=== PATIENT | male | born 1965 | race Caucasian/White ===

== ENCOUNTER 2016-09-11 19:14 | Observation (INO) | payer OTHER ==
[2016-09-11] MEDS ORDERED: ONDANSETRON 4 MG/2 ML VIAL IVPB ONE (19:52)
[2016-09-11] MEDS ORDERED: SODIUM CHLORIDE 500 ML IV STA (19:52)
[2016-09-11] MEDS ORDERED: ONDANSETRON 4 MG/2 ML VIAL ONE (20:01)
[2016-09-11 20:12] LABS: BASOPHIL 0.8 % (0-2.0); EOSINOPHIL 4.5 % (0-4.5); MCH 34.8 pg (25.7-33.7); MCHC 32.6 g/dl (32.0-35.9); MEAN PLT VOLUME 9.7 fl (7.5-11.1); NEUTROPHILS 54.2 % (42.8-82.8); PLATELET COUNT 188 K/MM3 (134-434); RDW 13.2 % (11.9-15.9); WHITE BLOOD COUNT 8.6 K/mm3 (4.0-10.0)
[2016-09-11 20:39] LABS: ANION GAP 10 (8-16); BILIRUBIN,TOTAL 0.3 mg/dL (0.2-1.0); CALCIUM 9.2 mg/dL (8.5-10.1); CO2 28 mmol/L (21-32); COCKROFT - GAULT 85.29; CREATININE 1.3 mg/dL (0.7-1.3); GLUCOSE,RANDOM 94 mg/dL (74-106); SGOT/AST 31 U/L (15-37); SGPT/ALT 38 U/L (12-78); TOT PROT 7.1 g/dl (6.4-8.2)
[2016-09-11 20:41] LABS: ALK PHOS 52 U/L (45-117); TROPONIN I < 0.02 ng/ml (0.00-0.05)
--- NOTE | 2016-09-11 21:08 | PDOC ---
History of Present Illness - General Chief Complaint: Pain Stated Complaint: CHEST PAIN Time Seen by Provider: 09/11/16 19:36 History Source: Patient Exam Limitations: No Limitations - History of Present Illness Initial Comments: 09/11/16 20:55 51yo Male patient w/ PmHx: HTN, HIV+, Herniated Disc presents to ED with multiple complaints. Patient reports last night around 3am, began having sharp back pain below left shoulder blade. He reports he was unable to sleep. Patient states having feelings of dizziness, nausea, numbness to left parietal region of scalp, left small finger radiating to palm, and left plantar "pins and needles." He reports last viral load around 15k. Patient was seen by his PCP- Dr. Huizar and sent over due to EKG change in comparison to EKG last year. Spoke with Dr. Catalan (Infectious Disease) who would like CTA, Lactic Acid and CPK added to labs and testing. He states patient was starting on new HIV medication 1 month ago, but does not believe this has anything to do with his medications. Infectious disease- Dr. Catalan. Internal Medicine- Dr. Huizar. Past History - Travel Traveled outside of the country in the last 30 days: No Close contact w/someone who was outside of country & ill: No - Past Medical History Allergies/Adverse Reactions: Allergies Allergy/AdvReac Type Severity Reaction Status Date / Time Penicillins Allergy Verified 09/11/16 19:24 Home Medications: Ambulatory Orders Unobtainable [Unobtainable] 09/11/16 Asthma: Yes HTN: Yes (borderline) HIV: Yes (viral load undetectable, CD4 count unknown.) - Surgical History Orthopedic Surgery: Yes (right knee) - Psycho/Social/Smoking Cessation Hx Suicidal Ideation: No Smoking Status: No Smoking History: Never smoked Number of Cigarettes Smoked Daily: 0 Hx Alcohol Use: No Drug/Substance Use Hx: No Substance Use Type: None Review of Systems - Review of Systems Able to Perform ROS?: Yes Is the patient limited Uzbek proficient: No Constitutional: No: Chills, Fever, Malaise, Night Sweats, Weakness HEENTM: No: Blurred Vision, Recent change in vision, Double Vision Respiratory: No: Cough, Shortness of Breath, Stridor, Wheezing, Hemoptysis Cardiac (ROS): Yes: Chest Pain. No: Lightheadedness, Palpitations, Syncope, Chest Tightness ABD/GI: Yes: Nausea. No: Constipated, Diarrhea, Poor Appetite, Poor Fluid Intake, Vomiting : No: Dysuria, Flank Pain Musculoskeletal: Yes: Back Pain. No: Joint Pain, Joint Swelling, Muscle Pain, Muscle Weakness, Joint Stiffness Integumentary: Yes: Sweating. No: Bruising, Erythema, Rash Neurological: Yes: Numbness, Paresthesia, Tingling, Dizziness. No: Headache, Seizure, Tremors, Weakness Hematologic/Lymphatic: No: Swollen Glands All Other Systems: Reviewed and Negative *Physical Exam - Vital Signs Last Vital Signs Temp Pulse Resp BP Pulse Ox 98.2 F 91 H 18 136/96 98 09/11/16 19:25 09/11/16 19:25 09/11/16 19:25 09/11/16 19:25 09/11/16 19:25 - Physical Exam General Appearance: Yes: Nourished, Appropriately Dressed. No: Apparent Distress, Mild Distress, Moderate Distress, Severe Distress HEENT: positive: EOMI, MEL, Normal ENT Inspection, Normal Voice, Symmetrical, TMs Normal, Pharynx Normal. negative: Pharyngeal Erythema, Tonsillar Exudate, Tonsillar Erythema, Nasal Congestion, Rhinorrhea, TM Bulging, TM Dull, TM Erythema Neck: positive: Trachea midline, Normal Thyroid, Supple. negative: Rigid, Lymphadenopathy (R), Lymphadenopathy (L), Tender lateral, Tender midline Respiratory/Chest: positive: Lungs Clear, Normal Breath Sounds. negative: Chest Tender, Respiratory Distress, Accessory Muscle Use, Labored Respiration, Rapid RR, Crackles, Rales, Rhonchi, Stridor, Wheezing Cardiovascular: positive: Regular Rhythm, Regular Rate Gastrointestinal/Abdominal: positive: Normal Bowel Sounds, Soft. negative: Distended, Guarding, Rebound, Tenderness Musculoskeletal: positive: Normal Inspection. negative: CVA Tenderness, Decreased Range of Motion, Muscle Spasm, Vertebral Tenderness Extremity: positive: Normal Capillary Refill, Normal Inspection, Normal Range of Motion. negative: Pedal Edema, Swelling, Calf Tenderness, Erythema, Inflammation Integumentary: positive: Normal Color, Dry, Warm. negative: Erythema, Hives, Rash, Swelling, Bruising Neurologic: positive: ventilating expert II-XII NML intact, Fully Oriented, Alert, Normal Mood/ Affect, Normal Response, Motor Strength 5/5 Heart Score/ECG Review - History History: Slightly suspicious - Electrocardiogram EKG: Normal - Age Age: 45-65 - Risk Factors Risk Factors Heart Score: No Hx Hypercholesterolemia, Yes Hx Hypertension, No Hx Diabetes, No Smoking History, No Positive family hx of cardiac disease, No Hx Obesity Based on the list above the patient has:: 1-2 risk factors - Troponin Troponin: </= normal limit - Score Heart Score - Total: 2 - ECG Impressions Normal ECG: Yes Non-specific ST Elevation: No Ischemic Changes: No Torsades geovanni Pointes: No WPW: No Comment:: 09/11/16 23:00 NSR W/ FLAT T-WAVES ED Treatment Course - LABORATORY CBC & Chemistry Diagram: 09/11/16 20:00 09/11/16 19:59 - ADDITIONAL ORDERS Additional order review: Laboratory Results 09/11/16 09/11/16 19:59 19:59 Sodium 144 Potassium 4.2 Chloride 106 Carbon Dioxide 28 Anion Gap 10 BUN 22 H Creatinine 1.3 D Creat Clearance w eGFR 57.97 Random Glucose 94 Calcium 9.2 Total Bilirubin 0.3 D AST 31 D ALT 38 Alkaline Phosphatase 52 D Creatine Kinase 368 H D CK-MB (CK-2) Rel Index Cancelled Troponin I < 0.02 Total Protein 7.1 Albumin 4.0 09/11/16 20:00 RBC 3.75 L MCV 107.0 H MCHC 32.6 RDW 13.2 MPV 9.7 Neutrophils % 54.2 Lymphocytes % 30.7 Monocytes % 9.8 Eosinophils % 4.5 Basophils % 0.8 - RADIOLOGY Radiology Studies Ordered: Category Date Time Status CARDIAC CTA [CT] Stat CT Scan 09/11/16 20:[address] WITHOUT CONTRAST [CT] Stat CT Scan 09/11/16 20:08 Ordered CHEST X-RAY PORTABLE* [RAD] Stat Radiology 09/11/16 20:08 Taken - Medications Given in the ED: ED Medications Discontinued Medications Generic Name Dose Route Start Last Admin Trade Name Freq PRN Reason Stop Dose Admin Sodium Chloride 500 mls @ 500 mls/hr 09/11/16 19:52 09/11/16 20:06 Normal Saline - IV 09/11/16 20:51 500 mls/hr ASDIR STA Administration Ondansetron HCl 4 mg 09/11/16 19:52 09/11/16 20:06 Zofran Injection IVPB 09/11/16 19:53 4 mg ONCE ONE Administration *DC/Admit/Observation/Transfer Diagnosis at time of Disposition: Chest pain Qualifiers: Chest pain type: other chest pain Qualified Code(s): R07.89 - Other chest pain ; R07.8 - Other chest pain - Discharge Dispostion Condition at time of disposition: Fair Admit: Yes
[2016-09-11 22:40] LABS: PLATELET ESTIMATE ADEQUATE (NORMAL)
[2016-09-11] MEDS ORDERED: morphine CARPU-JECT 4 MG/1 ML DISP.SYRIN IVPUSH ONE (23:02)
[2016-09-11] MEDS ORDERED: ONDANSETRON 4 MG/2 ML VIAL IVPUSH ONE (23:02)
[2016-09-11] MEDS ORDERED: morphine CARPU-JECT 4 MG/1 ML DISP.SYRIN ONE (23:03)
[2016-09-11] MEDS ORDERED: ONDANSETRON 4 MG/2 ML VIAL IVPB PRN (23:14)
[2016-09-11] MEDS ORDERED: SODIUM CHLORIDE 0.45% 1,000 ML IV SCH (23:15)
[2016-09-12 02:18] VITALS: BMI 27.3
[2016-09-12 05:29] LABS: TROPONIN I < 0.02 ng/ml (0.00-0.05)
[2016-09-12 07:16] LABS: BASOPHIL 0.8 % (0-2.0); EOSINOPHIL 5.7 % (0-4.5); MCH 36.2 pg (25.7-33.7); MCHC 34.2 g/dl (32.0-35.9); MEAN CELL VOLUME 105.9 fl (80-96); MEAN PLT VOLUME 9.5 fl (7.5-11.1); NEUTROPHILS 54.3 % (42.8-82.8); PLATELET COUNT 166 K/MM3 (134-434); RDW 12.7 % (11.9-15.9); WHITE BLOOD COUNT 6.7 K/mm3 (4.0-10.0)
[2016-09-12 09:25] LABS: TROPONIN I < 0.02 ng/ml (0.00-0.05)
[2016-09-12 09:50] LABS: ALBUMIN 3.5 g/dl (3.4-5.0); ANION GAP 9 (8-16); CALCIUM 8.5 mg/dL (8.5-10.1); CO2 25 mmol/L (21-32); GLUCOSE,RANDOM 102 mg/dL (74-106); SGOT/AST 26 U/L (15-37); SGPT/ALT 34 U/L (12-78); TOT PROT 6.2 g/dl (6.4-8.2)
[2016-09-12 09:59] LABS: ALK PHOS 43 U/L (45-117); BILIRUBIN,TOTAL 0.4 mg/dL (0.2-1.0); COCKROFT - GAULT 98.58; CREATININE 1.2 mg/dL (0.7-1.3); THYROID STIMULATING HORMONE 1.73 uIU/ml (0.358-3.74)
[2016-09-12 10:06] LABS: URINE APPEARANCE CLEAR; URINE BILIRUBIN NEGATIVE (NEGATIVE); URINE BLOOD NEGATIVE (NEGATIVE); URINE COLOR LTYELLOW; URINE GLUCOSE (UA) NEGATIVE (NEGATIVE); URINE KETONE NEGATIVE (NEGATIVE); URINE LEUK ESTERASE NEGATIVE (NEGATIVE); URINE NITRITE NEGATIVE (NEGATIVE); URINE PROTEIN NEGATIVE (NEGATIVE); URINE UROBILINOGEN NEGATIVE E.U./dl (0.2-1.0)
--- NOTE | 2016-09-12 10:16 | HP ---
Admitting History and Physical - Primary Care Physician PCP: Keegan Huizar - Admission Chief Complaint: back pain , chest pain History of Present Illness: ER HISTORY History of Present Illness Initial Comments: 09/11/16 20:55 51yo Male patient w/ PmHx: HTN, HIV+, Herniated Disc presents to ED with multiple complaints. Patient reports last night around 3am, began having sharp back pain below left shoulder blade. He reports he was unable to sleep. Patient states having feelings of dizziness, nausea, numbness to left parietal region of scalp, left small finger radiating to palm, and left plantar "pins and needles." He reports last viral load around 15k. Patient was seen by his PCP- Dr. Huizar and sent over due to EKG change in comparison to EKG last year. Spoke with Dr. Catalan (Infectious Disease) who would like CTA, Lactic Acid and CPK added to labs and testing. He states patient was starting on new HIV medication 1 month ago, but does not believe this has anything to do with his medications. Pt seen by me in Tele H/O herniated discs, sees spinal specialists-- has difficulty lifting his left arm, feels a sharp pain in the back when he does so. pain radiates to front of chest. No SOb. No dizziness. has numbness of left fingers and left toes, but sensations are intact.No headaches History Source: Patient Limitations to Obtaining History: No Limitations - Past Medical History Cardiovascular: Yes: HTN Infectious Disease: Yes: HIV Musculoskeletal: Yes: Chronic low back pain Additional Past Medical History: h/o DVT in the past - Smoking History Smoking history: Never smoked Aproximately how many cigarettes per day: 0 - Alcohol/Substance Use Hx Alcohol Use: No Home Medications - Allergies Allergies/Adverse Reactions: Allergies Allergy/AdvReac Type Severity Reaction Status Date / Time Penicillins Allergy Verified 09/11/16 19:24 - Home Medications Home Medications: Ambulatory Orders Baclofen 20 mg PO DAILY #30 tablet 09/12/16 Review of Systems - Review of Systems Constitutional: denies: Chills, Fever, Weakness Cardiovascular: denies: Chest Pain, Palpitations, Shortness of Breath Physical Examination Vital Signs: Vital Signs Temperature 98.1 F 09/11/16 23:52 Pulse Rate 75 09/11/16 23:52 Respiratory Rate 18 09/12/16 01:48 Blood Pressure 132/75 09/11/16 23:52 O2 Sat by Pulse Oximetry (%) 98 09/12/16 01:48 Constitutional: Yes: No Distress, Calm Cardiovascular: Yes: Regular Rate and Rhythm Respiratory: Yes: CTA Bilaterally Gastrointestinal: Yes: Normal Bowel Sounds, Soft, Abdomen, Obese. No: Distention, Tenderness Musculoskeletal: Yes: Other (tender left paraspinal muscle) Edema: No Neurological: Yes: WNL Psychiatric: Yes: Alert, Oriented Labs: CBC, BMP 09/12/16 06:00 09/12/16 06:00 Imaging - Results Chest X-ray: Image Reviewed (clear) Cat Scan: Report Reviewed EKG: Image Reviewed (NR, FLAT T WAVES) Problem List - Problems (1) Chest pain Code(s): R07.9 - CHEST PAIN, UNSPECIFIED Qualifiers: Chest pain type: other chest pain Qualified Code(s): R07.89 - Other chest pain; R07.8 - Other chest pain (2) Back pain Code(s): M54.9 - DORSALGIA, UNSPECIFIED Assessment/Plan PLAN Cardiac enzymes negative tele uneventful over night CTA-- negative for dissection, PE CT head- no acute pathology CT chest shows right nodule and this was discussed with pt-- he needs to repeat CT chest in 3 months to follow up-- he is not a smoker but admits to second hand smoke ID eval regarding meds IV fluids DVT prophylaxis-- heparin sc dc planning sangeeta need to follow up with fiber technician and Neurologist as an outpt
--- NOTE | 2016-09-12 10:38 | DS ---
Physical Examination Vital Signs: Vital Signs Temperature 98.1 F 09/11/16 23:52 Pulse Rate 75 09/11/16 23:52 Respiratory Rate 18 09/12/16 01:48 Blood Pressure 132/75 09/11/16 23:52 O2 Sat by Pulse Oximetry (%) 98 09/12/16 01:48 Constitutional: Yes: No Distress Labs: CBC, BMP 09/12/16 06:00 09/12/16 06:00 Discharge Summary Reason For Visit: chest pain Current Active Problems Chest pain (Acute) Hospital Course: Admitted for chest and back pain ACS ruled out CArotid doppler negative Seen by ID refer to H and P stable for dc home Condition: Improved - Instructions Referrals: Daniel Alfred DO [Staff Physician] - 1 Week (Neurology- for EMG ) Wilder Williamson MD [Staff Physician] - 1 Week (Cardiology) Anselmo Anne MD, MD [Staff Physician] - 3 Weeks (for ct chest -- follow up on lung nodule ) Disposition: HOME - Home Medications Comprehensive Discharge Medication List: Ambulatory Orders Unobtainable [Unobtainable] 09/11/16
[2016-09-12] MEDS ORDERED: NAPROXEN 375 MG TABLET (FP) PO PRN (12:40)
[2016-09-12] MEDS ORDERED: BACLOFEN 10 MG TABLET (FP) PO ONE (13:00)
--- NOTE | 2016-09-12 13:00 | PN ---
Progress Note (short form) - Note Progress Note: ID Consult dictated OK to discharge from ID standpoint Resume ART
[2016-09-12 13:43] VITALS: BP 134/79; PULSE 84; TEMP 98.4
--- NOTE | 2016-09-13 16:35 | EKG ---
Test Reason : Blood Pressure : / mmHG Vent. Rate : 097 BPM Atrial Rate : 097 BPM P-R Int : 162 ms QRS Dur : 096 ms QT Int : 356 ms P-R-T Axes : 046 012 039 degrees QTc Int : 452 ms NORMAL SINUS RHYTHM POSSIBLE LEFT ATRIAL ENLARGEMENT INCOMPLETE RIGHT BUNDLE BRANCH BLOCK NONSPECIFIC T WAVE ABNORMALITY ABNORMAL ECG WHEN COMPARED WITH ECG OF 18-JUL-2012 19:12, NONSPECIFIC T WAVE ABNORMALITY, WORSE IN ANTEROLATERAL LEADS Confirmed by LAMBERT CALHOUN MD ([id number]) on 09/13/2016 4:35:10 PM Referred By: Confirmed By:LAMBERT CALHOUN MD
== END 2016-09-12 15:07 | disposition home or self-care (01) ==
LOC: JER 19:14 → JERBED 23:03 → J4S 09-12 01:38
PROVIDERS: ADMIT Internal Medicine; ATTEND Internal Medicine
PROC: 3E033NZ Introduction of Analgesics, Hypnotics, Sedatives into Peripheral Vein, Percutaneous Approach (ICD-10-PCS; principal; 2016-09-11)
PROC: 3E033GC Introduction of Other Therapeutic Substance into Peripheral Vein, Percutaneous Approach (ICD-10-PCS; 2016-09-11)
PROC: 3E0337Z Introduction of Electrolytic and Water Balance Substance into Peripheral Vein, Percutaneous Approach (ICD-10-PCS; 2016-09-11)
DX: R07.89 Other chest pain (principal); I10 Essential (primary) hypertension; Z21 Asymptomatic human immunodeficiency virus [HIV] infection status; J45.909 Unspecified asthma, uncomplicated; M54.5 Low back pain; G89.29 Other chronic pain
CPT/HCPCS: 36415; 70450-TC; 71010-TC; 71275-TC; 80053; 81003; 82550; 82553; 82607; 83605; 84443; 84484; 85025; 93005; 93010; 93880-TC; 99285-25; G0378; J0475

== ENCOUNTER 2016-11-06 22:02 | Emergency (ER) | payer SELFPAY ==
[2016-11-06 22:19] VITALS: BP 121/58; PULSE 89; TEMP 97.9; BMI 27.2
[2016-11-06] MEDS ORDERED: SODIUM CHLORIDE 1,000 ML IV STA (22:58)
[2016-11-06] MEDS ORDERED: MAG HYDROX/AL HYDROX/SIMETH 30 ML UNIT-DOSE CUP PO PRN (23:01)
[2016-11-06] MEDS ORDERED: FAMOTIDINE 20 MG/50 ML IVPB 50 ML IVPB ONE ×2 (23:01→23:08)
[2016-11-06] MEDS ORDERED: MAG HYDROX/AL HYDROX/SIMETH 30 ML UNIT-DOSE CUP ONE (23:08)
[2016-11-06 23:50] LABS: BASOPHIL 0.9 % (0-2.0); EOSINOPHIL 4.3 % (0-4.5); MCH 32.9 pg (25.7-33.7); MCHC 33.2 g/dl (32.0-35.9); MEAN CELL VOLUME 99.3 fl (80-96); MEAN PLT VOLUME 10.1 fl (7.5-11.1); NEUTROPHILS 52.7 % (42.8-82.8); PLATELET COUNT 212 K/MM3 (134-434); RDW 12.8 % (11.9-15.9); WHITE BLOOD COUNT 8.4 K/mm3 (4.0-10.0)
--- NOTE | 2016-11-07 00:23 | PDOC ---
History of Present Illness - General Chief Complaint: Pain Stated Complaint: CHEST PAIN Time Seen by Provider: 11/06/16 22:43 - History of Present Illness Initial Comments: 11/07/16 00:11 51 yo M with h/o HTN, HIV, and herniated disc who presents with chest pain. Pt. reports diffuse chest pressure of 3 hours duration. States that he has deep left shoulder pain, reflux, and lightheadedness. Denies SOB, diaphoresis, weakness, N/V, fevers/chills, numbness/tingling, LYON, vision changes, dizziness, weakness. States that he started new job and has not maintained adequate fluid intake. Denies nitrate, aspirin use or OTC analgesia. Denies recent traveling, or extended periods of immobility. Recently evaluated in ED (09/11) with similar complaints. Received CT head, CTA, CXR, carotid Doppler. Does not recall last CD4 count or T cell. Past History - Past Medical History Allergies/Adverse Reactions: Allergies Allergy/AdvReac Type Severity Reaction Status Date / Time Penicillins Allergy Verified 11/06/16 22:16 Home Medications: Ambulatory Orders Baclofen 20 mg PO DAILY #30 tablet 09/12/16 Asthma: Yes CVA: No CHF: No Diabetes: No HTN: Yes Hypercholesterolemia: Yes HIV: Yes (viral load undetectable, CD4 count unknown.) Seizures: No - Surgical History Abdominal Surgery: No Orthopedic Surgery: Yes (right knee) - Psycho/Social/Smoking Cessation Hx Suicidal Ideation: No Smoking Status: No Smoking History: Never smoked Number of Cigarettes Smoked Daily: 0 Information on smoking cessation initiated: No Hx Alcohol Use: No Drug/Substance Use Hx: No Substance Use Type: None Review of Systems - Review of Systems Comments:: 11/07/16 00:32 GENERAL/CONSTITUTIONAL: No fever or chills. No weakness. HEAD, EYES, EARS, NOSE AND THROAT: No change in vision. No ear pain or discharge. No sore throat. CARDIOVASCULAR: + chest pain. No shortness of breath RESPIRATORY: No cough, wheezing, or hemoptysis. GASTROINTESTINAL: No nausea, vomiting, diarrhea or constipation. GENITOURINARY: No dysuria, frequency, or change in urination. MUSCULOSKELETAL: No joint or muscle swelling or pain. No neck or back pain. SKIN: No rash NEUROLOGIC:+ lightheadedness. No headache, vertigo, loss of consciousness, or change in strength/sensation. ENDOCRINE: No increased thirst. No abnormal weight change HEMATOLOGIC/LYMPHATIC: No anemia, easy bleeding, or history of blood clots. ALLERGIC/IMMUNOLOGIC: No hives or skin allergy. *Physical Exam - Vital Signs Last Vital Signs Temp Pulse Resp BP Pulse Ox 97.9 F 89 18 121/58 98 11/06/16 22:16 11/06/16 22:16 11/06/16 22:16 11/06/16 23:28 11/06/16 22:16 - Physical Exam Comments: 11/07/16 00:34 GENERAL: Awake, alert, and fully oriented, in no acute distress HEAD: No signs of trauma, normocephalic, atraumatic EYES: PERRLA, EOMI, sclera anicteric, conjunctiva clear ENT:Auricles normal inspection, hearing grossly normal, nares patent, oropharynx clear without exudates. Moist mucosa NECK: Normal ROM, supple, no lymphadenopathy, JVD, or masses LUNGS: No distress, speaks full sentences, clear to auscultation bilaterally HEART: Regular rate and rhythm, normal S1 and S2, no murmurs, rubs or gallops, peripheral pulses normal and equal bilaterally. ABDOMEN: Soft, nontender, normoactive bowel sounds. No guarding, no rebound. No masses EXTREMITIES: Normal inspection, Normal range of motion, no edema. No clubbing or cyanosis. NEUROLOGICAL: Cranial nerves II through XII grossly intact. Normal speech, normal gait, no focal sensorimotor deficits SKIN: Warm, Dry, normal turgor, no rashes or lesions noted. ED Treatment Course - LABORATORY CBC & Chemistry Diagram: 11/06/16 23:09 11/06/16 23:09 - ADDITIONAL ORDERS Additional order review: 11/06/16 23:09 RBC 4.11 MCV 99.3 H MCHC 33.2 RDW 12.8 MPV 10.1 Neutrophils % 52.7 Lymphocytes % 33.4 Monocytes % 8.7 Eosinophils % 4.3 Basophils % 0.9 - RADIOLOGY Radiology Studies Ordered: Category Date Time Status CXRPORT [CHEST X-RAY PORTABLE*] [RAD] Stat Radiology 11/06/16 22:57 Taken - Medications Given in the ED: ED Medications Discontinued Medications Generic Name Dose Route Start Last Admin Trade Name Freq PRN Reason Stop Dose Admin Sodium Chloride 1,000 mls @ 1,000 mls/hr 11/06/16 22:58 11/06/16 23:28 Normal Saline - IV 11/06/16 23:57 1,000 mls/hr ASDIR STA Administration Famotidine/Sodium Chloride 50 mls @ 100 mls/hr 11/06/16 23:01 11/06/16 23:29 Pepcid 20 Mg Premixed Ivpb - IVPB 11/06/16 23:30 100 mls/hr ONCE ONE Administration Medical Decision Making - Medical Decision Making 11/07/16 00:34 51 yo M with h/o HTN, HIV, and herniated disc who presents with chest pain. Pt. is stable with benign physical exam. Endorses chest pressure and lightheadedness of 3 hours duration. Recently evaluated in ED ( 09/11) with similar presentation and negative workup. Sx. likely 2/2 dehydration. Pt reports decreased oral intake over past 24 hours. Given h/o HIV there is potential for opportunistic infection. ED course: CBC, CMP,Cardiac EKG, CXR Maloox, Pepcid NS 1 L CBC: unremarkable: WBC~8.4 CMP: BUN~22 Stable Discharge *DC/Admit/Observation/Transfer Diagnosis at time of Disposition: Chest pain of unknown etiology - Discharge Dispostion Disposition: HOME Condition at time of disposition: Stable Admit: No - Patient Instructions Printed Discharge Instructions: DI for Dehydration -- Adult Print Language: YORUBA - Attestations Physician Attestion: 11/07/16 02:58 I, Dr. Drake Monet, attest that this document has been prepared under my direction and personally reviewed by me in its entirety. I further attest, that it accurately reflects all work, treatment, procedures and medical decision -making performed by me.
[2016-11-07 01:20] LABS: INR 1.14 (0.82-1.09); PROTHROMBIN TIME (PATIENT) 12.6 SEC (9.98-11.88)
[2016-11-07 01:33] LABS: ALBUMIN 3.6 g/dl (3.4-5.0); ANION GAP 7 (8-16); BILIRUBIN,TOTAL 0.3 mg/dL (0.2-1.0); CALCIUM 8.5 mg/dL (8.5-10.1); CO2 31 mmol/L (21-32); CREATININE 1.2 mg/dL (0.7-1.3); GLUCOSE,RANDOM 93 mg/dL (74-106); SGOT/AST 24 U/L (15-37); SGPT/ALT 32 U/L (12-78); TOT PROT 6.4 g/dl (6.4-8.2)
[2016-11-07 01:34] LABS: ALK PHOS 50 U/L (45-117)
--- NOTE | 2016-11-07 01:39 | PDOC ---
Attending Attestation - Resident Resident Name: Drake Monet - HPI HPI: 11/07/16 01:38 Pt comes with chest pain that is left sided. Vital signs normal. - Physicial Exam PE: 11/07/16 01:39 Agree with resident's exam - Medical Decision Making 11/07/16 01:39 Pt comes with chest pain and HIV+. Labs normal. Cardiac enzymes pending. EKG normal. CXR pending 11/07/16 05:37 CXR normal; EKG unachanged from prior. Labs normal. Exam normal. Pt states that he is under great duress as he took in a homeless friend, who is an alcoholic and has been drinking and smoking in the center of pt's home, and pt cannot get rid if him, though it has been several months. Diagnosis: Atypical CP; stress
[2016-11-07 02:19] LABS: CPK 371 IU/L (39-308); TROPONIN I < 0.02 ng/ml (0.00-0.05)
--- NOTE | 2016-11-08 18:41 | EKG ---
Test Reason : Blood Pressure : / mmHG Vent. Rate : 090 BPM Atrial Rate : 090 BPM P-R Int : 156 ms QRS Dur : 106 ms QT Int : 360 ms P-R-T Axes : 060 037 038 degrees QTc Int : 440 ms NORMAL SINUS RHYTHM NONSPECIFIC ST-TABNORMALITIES NORMAL ECG WHEN COMPARED WITH ECG OF 11-SEP-2016 19:22, INCOMPLETE RIGHT BUNDLE BRANCH BLOCK IS NO LONGER PRESENT ] CORRRELATE CLINICALLY AND REPEAT INDICATED Confirmed by KEHINDE AMOR MD ([id number]) on 11/08/2016 6:41:39 PM Referred By: Confirmed By:KEHINDE AMOR MD
== END 2016-11-07 03:34 | disposition home or self-care (01) ==
LOC: JER 22:02
PROC: 3E033GC Introduction of Other Therapeutic Substance into Peripheral Vein, Percutaneous Approach (ICD-10-PCS; principal; 2016-11-06)
DX: R07.89 Other chest pain (principal); I10 Essential (primary) hypertension; J45.909 Unspecified asthma, uncomplicated; E78.00 Pure hypercholesterolemia, unspecified; Z21 Asymptomatic human immunodeficiency virus [HIV] infection status
CPT/HCPCS: 36415; 71010-TC; 80053; 84484; 85025; 85610; 85730; 93005; 93010; 99282-25